=== PATIENT | female | born 1980 | race African-American/Black ===

== ENCOUNTER 2025-01-23 21:31 | Emergency (ER) | payer OTHER ==
[~2025-01-23] VITALS: Ht 165.1 cm; Wt 82.0 kg
[2025-01-23 21:51] VITALS: BP 126/77; PULSE 74; RESP 16; TEMP 36.6; O2SAT 100
== END 2025-01-23 22:31 | disposition left against medical advice (07) ==
LOC: ER 21:31
DX: M54.89 Other dorsalgia (principal); Z53.21 Procedure and treatment not carried out due to patient leaving prior to being seen by health care provider